=== PATIENT | female | born 1995 | race Caucasian/White ===

== ENCOUNTER 2018-07-18 11:31 | Emergency (ER) | payer OTHER ==
[~2018-07-18] VITALS: Ht 149.9 cm; Wt 54.0 kg
== END 2018-07-18 13:11 | disposition home or self-care (01) ==
LOC: ER 11:31
DX: T78.1XXA Other adverse food reactions, not elsewhere classified, initial encounter (principal); T78.3XXA Angioneurotic edema, initial encounter